=== PATIENT | female | born 1975 | race Caucasian/White ===

== ENCOUNTER 2017-09-18 20:27 | Emergency (ER) | payer OTHER ==
--- NOTE | 2017-09-18 21:29 | PD ---
HPI Chief Complaint Decreased movement Date Seen: Sep 18, 2017 Time Seen: 21:23 Travel History International Travel<30 Days: No Contact w/Intl Traveler<30Days: No Known Affected Area: No History of Present Illness HPI 41-year-old white female sees Dr. Coleman for care now 39 weeks presents with decreased movement. He has no other complaints or problems no pain, bleeding, leakage of fluid. heart rate tracing is reactive and here on OB ED and she is chrissy every 4-5 minutes but does not feel them Weeks Gestation: 39 Para: 0 : 1 History Social History Alcohol Use: No Tobacco Use: No Substance Abuse: No Review of Systems General / Constitutional: No: Fever, Weight Gain, Chills, Other Eyes: No: Diploplia, Blurred Vision, Visual changes, Pain, Photophobia HENT: No: Headaches, Vertigo, Lightheadedness Cardiovascular: No: Irregular Rhythm, Chest Pain or Discomfort, Palpitations, Tachycardia, Syncope, Varicosities, Edema, Cyanosis Respiratory: No: Cough, Short of Breath, Other Gastrointestinal: No: Nausea, Vomiting, Diarrhea Genitourinary: No: Decreased Urinary Output, Oliguria Musculoskeletal: No: Limited ROM, Weakness, Cramping, Edema, Pain Skin: No Rash, No Itching, No Dryness, No Lumps, No Change in Pigmentation, No Change in Nails, No Alopecia, No Lesions Neurologic: No: Weakness, Dizziness, Syncope, Focal Abnormalities, Coordination Problem, Headache, Slurred Speech, Seizures Psychiatric: No: Depression, Suicidal Ideations, Homicidal Ideation Endocrine: No: Heat Intolerance, Cold Intolerance, Polydipsia, Polyuria, Other Physical Exam Narrative GENERAL: Well-nourished, well-developed patient. SKIN: Warm and dry. HEAD: Normocephalic and atraumatic. EYES: No scleral icterus. No injection or drainage. ENT: No nasal drainage noted. Mucous membranes pink. Airway patent. NECK: Supple, trachea midline. No JVD. CARDIOVASCULAR: Regular rate and rhythm without murmurs, gallops, or rubs. RESPIRATORY: Breath sounds equal bilaterally. No accessory muscle use. BREASTS: Bilateral exam showed no masses , no retractions, no nipple discharge. ABDOMEN/GI: Abdomen soft, non-tender, bowel sounds present, no rebound, no guarding Gravid to [39-] weeks size Fundal Height: [39-] GENITOURINARY: External Genitalia: intact and normal in appearance BUS glands: [-] Cervix: [post-] Dilatation: [-closed] Effacement: [50-] Station: [-2] Presentation: [-vtx] Membranes: [intact ] Uterine Contractions: [-q 4 min] FHT's: Category: [1-] Baseline: [133-] Reactive: [R-] Variability: [mod-] Decels: [0-] EXTREMITIES: No cyanosis or edema. BACK: Nontender without obvious deformity. No CVA tenderness. NEUROLOGICAL: Awake and alert. Motor and sensory grossly within normal limits. Five out of 5 muscle strength in all muscle groups. Normal speech. MDM Interpretation(s) Patient is 41-year-old white female at 39 weeks here for decreased movement, baby is a reactive heart rate tracing here with good revealing large accelerations. She is feeling more movement since she has been here on OB ED. She has no other complaints or problems. Plan Plan to discharge home with home kick counts and she is to follow-up Dr. Coleman Diagnosis Diagnosis: Primary Impression: Decreased movement during in third trimester, antepartum Additional Impression: 39 weeks gestation of Disposition: 01 DISCHARGE HOME Condition: Stable Davie Connell II, MD Sep 18, 2017 21:29
== END 2017-09-18 21:43 | disposition home or self-care (01) ==
LOC: HOBED 20:27
DX: O36.8130 Decreased fetal movements, third trimester, not applicable or unspecified (principal); Z3A.39 39 weeks gestation of pregnancy
CPT/HCPCS: 59025

== ENCOUNTER 2017-09-21 12:36 | Inpatient (IN) | payer OTHER ==
[~2017-09-21] VITALS: Ht 167.6 cm; Wt 60.0 kg
[2017-09-21] VITALS (17 sets, daily range): BP systolic 111–154; BP diastolic 72–91; PULSE 70–105; RESP 18; TEMP 98–98.5; O2SAT 97
[2017-09-21] MEDS ORDERED: LACTATED RINGER'S 1000 ML INJ 1,000 ML IV SCH (13:32)
[2017-09-21] MEDS ORDERED: LACTATED RINGER'S 1000 ML INJ 1,000 ML IV PRN (13:32)
--- NOTE | 2017-09-21 13:40 | PD ---
HPI Chief Complaint ctx Date Seen: Sep 21, 2017 Time Seen: 13:35 Travel History International Travel<30 Days: No Contact w/Intl Traveler<30Days: No Known Affected Area: No History of Present Illness HPI 41y/o @ 39.6wks. She has PNC with Dr. Coleman. She presents to triage with c/o ctx which started this morning. They are 2-3m apart and painful. No LOF or VB. +FM. is c/b AMA. Pt was scheduled for IOL yesterday or Saturday. GBS+. Weeks Gestation: 39 Para: 0 : 1 History Past Medical History Narrative Medical anxiety Obstetric History Obstetric History 1. current Past Surgical History Narrative Surgical L wrist/elbow following sporting injuries Family History Family History: Negative Social History Alcohol Use: No Tobacco Use: No Substance Abuse: No Allergies-Medications (Allergen,Severity, Reaction): Coded Allergies: No Known Allergies (Unverified , 09/21/17) Narrative Medication effexor PNVs Review of Systems Except as stated in HPI: all other systems reviewed are Neg Physical Exam Narrative General: well developed, well nourished, uncomfortable with ctx HEENT: normocephalic atraumatic, extraocular movements intact, neck supple Abdomen: soft, gravid, nontender, nondistended Uterus: fundus term Extremities: full range of motion Skin: normal coloration, no rashes, no suspicious skin lesions noted Neurologic: cranial nerves 2-12 grossly intact, normal muscle tone, normal gait Psychiatric: normal mood and affect, appropriate FHTs: 130s, +accels, no decels, moderate variability, reactive [place]: ctx q3-4m, painful Cvx: 1/80/-1 Data Data Vital Signs Reviewed: Yes Orders Orders Vital Signs (Adult) .ON ADMISSION (09/21/17 13:32) ^ Labor Status (09/21/17 13:32) ^ Non Stress Test (09/21/17 13:32) Admit To Inpatient (09/21/17 ) Vital Signs (Adult) .Per protocol (09/21/17 13:32) Heart (09/21/17 13:32) Amnioinfusion (09/21/17 13:32) Urinary Catheter Management .ONCE (09/21/17 13:32) Diet Liquid (09/21/17 Lunch) Lactated Ringer's 1000 Ml Inj (Lr 1000 M (09/21/17 13:32) Lactated Ringer's 1000 Ml Inj (Lr 1000 M (09/21/17 13:32) Sodium Chlorid 0.9% 500 Ml Inj (Ns 500 M (09/21/17 13:45) Sodium Chlor 0.9% 1000 Ml Inj (Ns 1000 M (09/21/17 13:52) Lidocaine 1% Inj (50 Ml) (Xylocaine 1% I (09/21/17 13:45) Fentanyl Inj (Fentanyl Inj) (09/21/17 13:45) Fentanyl Inj (Fentanyl Inj) (09/21/17 13:45) Penicillin G Potassium Inj (Pfizerpen-G (09/21/17 13:45) Penicillin G Potassium Inj (Pfizerpen-G (09/21/17 17:45) Complete Blood Count With Diff (09/21/17 13:32) Hold Clot (09/21/17 13:32) Abo/Rh Blood Type (09/21/17 13:32) Urinalysis - C+S If Indicated (09/21/17 13:32) Drug Screen, Random Urine (09/21/17 13:32) Ob/Psych Drug Screen, Urine (09/21/17 13:32) Resp Oxygen Non Rebreathe Mask (09/21/17 ) ^ Epidural / Intrathecal Infus (09/21/17 13:32) Oxytocin 30 Units-500ml Premix (Pitocin (09/21/17 13:45) Lidocaine 1% Inj (50 Ml) (Xylocaine 1% I (09/21/17 13:45) Light Mineral Oil (Muri-Lube Oil) (09/21/17 13:45) Inpatient Certification (09/21/17 ) Group B Strep: Positive MDM Plan 41y/o G1 @ 39.6wks with painful ctx in latent labor. -- given AMA with plans for IOL on Saturday, will admit -- GBS+, PCN ordered -- FHTs cat 1 Dispo: Dr. Coleman/Nina (email operations manager) notified of pt status and agrees with plan of care. They will assume care of the pt. Courtesy orders placed. Diagnosis Diagnosis: Primary Impression: 39 weeks gestation of Additional Impressions: AMA (advanced maternal age) primigravida 35+ Uterine contractions during GBS (group B Streptococcus carrier), +RV culture, currently Samantha Moore MD Sep 21, 2017 13:40
[2017-09-21] MEDS ORDERED: VENL75TA PO (13:41)
[2017-09-21] MEDS ORDERED: PREN1TAB45 PO (13:41)
[2017-09-21] MEDS ORDERED: PENICILLIN G POTASSIUM INJ 5,000,000 UNITS in SODIUM CHLORIDE 0.9% INJ 100 ML IV ONE (13:45)
[2017-09-21] MEDS ORDERED: MINERAL OIL 10 ML VIAL TOPICAL PRN (13:45)
[2017-09-21] MEDS ORDERED: OXYTOCIN 30 UNITS-500ML PREMIX 500 ML IV ONE ×2 (13:45→20:15)
[2017-09-21] MEDS ORDERED: LIDOCAINE HCL 1% 50 ML VIAL I-DERMAL PRN (13:45)
[2017-09-21] MEDS ORDERED: SODIUM CHLORID 0.9% 500 ML INJ 500 ML IV PRN (13:45)
[2017-09-21] MEDS ORDERED: LIDOCAINE HCL 1% 50 ML VIAL INFIL PRN (13:45)
[2017-09-21] MEDS ORDERED: SODIUM CHLOR 0.9% 1000 ML INJ 1,000 ML IV PRN (13:52)
[2017-09-21 14:35] LABS: AUTOMATED NEUTROPHIL # 10.7 TH/MM3 (1.8-7.7); BASOPHIL # 0.1 TH/MM3 (0-0.2); BASOPHIL % 0.5 % (0.0-2.0); EOSINOPHIL % 0.1 % (0.0-4.0); HEMOGLOBIN 10.5 GM/DL (11.6-15.3); LYMPH % 8.5 % (9.0-44.0); LYMPHOCYTE # 1.1 TH/MM3 (1.0-4.8); MEAN CELL VOLUME 76.4 FL (80.0-100.0); MEAN CORPUSCULAR HEMOGLOBIN 24.2 PG (27.0-34.0); MEAN CORPUSCULAR HGB CONC 31.7 % (32.0-36.0); MEAN PLATELET VOLUME 10.2 FL (7.0-11.0); MONO % 8.4 % (0.0-8.0); MONOCYTE # 1.1 TH/MM3 (0-0.9); NEUT % 82.5 % (16.0-70.0); PLATELET COUNT 193 TH/MM3 (150-450); RED BLOOD COUNT 4.32 MIL/MM3 (4.00-5.30); RED CELL DISTRIBUTION WIDTH 17.7 % (11.6-17.2); WHITE BLOOD COUNT 12.9 TH/MM3 (4.0-11.0)
[2017-09-21] MEDS ORDERED: DIPHTH/TETANUS/ACEL PERTUSSIS (BOOSTER) 0.5 ML VIAL/PFS IM ONE (16:00)
[2017-09-21] MEDS ORDERED: MEASLES, MUMPS, RUBELLA VACCINE 0.5 ML VIAL SQ ONE (16:00)
[2017-09-21 16:23] LABS: BACTERIA, URINE RARE /hpf; BILIRUBIN, URINE NEG (NEG); BLOOD, URINE SMALL (NEG); GLUCOSE,URINE NEG (NEG); KETONE, URINE 80 mg/dL (NEG); MUCUS URINE FEW /lpf (OCC); NITRITE,URINE NEG (NEG); SQUAMOUS EPITHELIAL CELL URINE 5 /hpf (0-5); URINE COLOR YELLOW (YELLW/STRAW); URINE LEUKOCYTE ESTERASE NEG (NEG)
[2017-09-21] MEDS ORDERED: PENICILLIN G POTASSIUM INJ 2,500,000 UNITS in SODIUM CHLORIDE 0.9% INJ 100 ML IV SCH (18:00)
[2017-09-21] MEDS ORDERED: LIDOCAINE HCL 1% PF 30 ML VIAL ONE (19:30)
--- NOTE | 2017-09-21 20:05 | PD.OB.DELI ---
Weeks gestation: 39 Gest age assessed date: Sep 21, 2017 Pt started active labor?: Yes Active labor start date: Sep 21, 2017 Medical induction of labor?: No Artificial rupture of membrane: No Anesthesia: None Episiotomy: None Vaginal Delivery: Normal Presentation: Occiput anterior Nuchal Cord: None Delayed cord clamping (45 sec): No Delivery date: Sep 21, 2017 Delivery time: 19:33 One Minute : 3 Five Minute : 6 Ten Minute : 8 Placenta: Spontaneous delivery, Intact, 3 vessel cord Laceration: No lacerations Estimated blood loss: 300 Additional Information Beautiful delivery of Chandra... Cord cut quickly due to the baby being floppy [employer] called as baby was not responding well. By 10 minutes baby looked much better. Pt did extremely well and had no meds at all FOC is Leonard Prado son. Jazmin Wood MD Sep 21, 2017 20:05
[2017-09-21] MEDS ORDERED: ONDANSETRON ODT 4 MG TAB PO PRN (20:15)
[2017-09-21] MEDS ORDERED: ZOLPIDEM TARTRATE 5 MG TAB PO PRN (20:15)
[2017-09-21] MEDS ORDERED: SODIUM CHLORIDE 0.9% FLUSH 10 ML FLUSH IV FLUSH PRN (20:15)
[2017-09-21] MEDS ORDERED: DOCUSATE SODIUM 50 MG/SENNA 8.6 MG TAB PO PRN (20:15)
[2017-09-21] MEDS ORDERED: WITCH HAZEL 50%/GLYCERIN 12.5% 40 PAD JAR TOPICAL PRN (20:15)
[2017-09-21] MEDS ORDERED: BENZOCAINE 20% TOPICAL SPRAY 60 ML CAN TOPICAL PRN (20:15)
[2017-09-21] MEDS ORDERED: OXYTOCIN 30 UNITS-500ML PREMIX 500 ML IV SCH (20:15)
[2017-09-21] MEDS ORDERED: ALUMINUM/MAGNESIUM/SIMETH 30 ML CUP PO PRN (20:15)
[2017-09-21] MEDS: IBUPROFEN 800 MG TAB PO PRN (20:50)
[2017-09-21] MEDS: ACETAMINOPHEN 325 MG TAB PO PRN (20:50)
[2017-09-22] MEDS: PRENATAL VITAMIN CHEWABLE TAB PO SCH (08:22)
[2017-09-22] MEDS: IBUPROFEN 800 MG TAB PO PRN ×2 (08:22→17:37)
[2017-09-22] MEDS: ACETAMINOPHEN 325 MG TAB PO PRN ×2 (08:22→17:37)
[2017-09-22 08:30] VITALS: BP 126/86; PULSE 72; RESP 17; TEMP 98.1
[2017-09-22] MEDS: SODIUM CHLORIDE 0.9% FLUSH 10 ML FLUSH IV FLUSH SCH (09:00)
[2017-09-22] MEDS: VENLAFAXINE HCL 75 MG TAB PO SCH (09:26)
--- NOTE | 2017-09-22 12:07 | HHI.OB ---
Subjective Post Day: 1 Remarks Doing well, Pain well controlled baby is good Bleeding is normal Objective Vitals/I&O Vital Signs Date Time Temp Pulse Resp B/P (MAP) Pulse Ox O2 Delivery O2 Flow Rate FiO2 09/22/17 08:30 98.1 09/22/17 08:30 72 17 09/22/17 08:30 126/86 (99) 09/21/17 22:15 98.0 73 18 111/78 (89) 97 09/21/17 20:46 73 09/21/17 20:45 18 09/21/17 20:45 73 128/83 (98) 09/21/17 20:45 98.5 09/21/17 20:29 70 18 127/76 (93) 09/21/17 20:05 78 129/73 (91) 09/21/17 20:00 76 18 09/21/17 20:00 126/75 (92) 09/21/17 19:50 98.2 09/21/17 19:49 18 09/21/17 19:48 111/89 (96) 09/21/17 19:48 105 09/21/17 18:10 98.3 78 18 125/72 (89) 09/21/17 16:45 18 09/21/17 16:38 74 141/80 (100) 09/21/17 15:45 98.0 09/21/17 15:45 18 09/21/17 13:45 18 09/21/17 13:39 70 154/83 (106) 09/21/17 12:54 77 130/88 (102) 09/21/17 12:51 131/91 (104) Objective Remarks GENERAL: Well-nourished, well-developed patient. CARDIOVASCULAR: Regular rate and rhythm without murmurs, gallops, or rubs. RESPIRATORY: Breath sounds equal bilaterally. No accessory muscle use. ABDOMEN/GI: Abdomen soft, non-tender. Fundus: Firm, non-tender at umbilicus. GENITOURINARY: Light to moderate bleeding. EXTREMITIES: No cyanosis or edema, non-tender, without signs of DVT. Medications and IVs Current Medications Medications (Trade) Dose Ordered Sig/Yakelin Route Start Time Stop Time Status Last Admin (NS Flush) 2 ml BID IV FLUSH 09/21/17 21:00 (NS Flush) 2 ml UNSCH PRN IV FLUSH 09/21/17 20:15 (Tylenol) 650 mg Q4H PRN PO 09/21/17 20:15 09/22/17 08:22 (Motrin) 800 mg Q8H PRN PO 09/21/17 20:15 09/22/17 08:22 (Americaine 20% Top Spr) 1 spray Q4H PRN TOPICAL 09/21/17 20:15 09/22/17 08:23 (Tucks Pads) 1 applic QID PRN TOPICAL 09/21/17 20:15 09/22/17 08:22 (Megan-Colace) 2 tab Q12H PRN PO 09/21/17 20:15 09/21/17 20:50 (Ambien) 5 mg HS PRN PO 09/21/17 20:15 (Mag-Al Plus Susp Liq) 15 ml Q8H PRN PO 09/21/17 20:15 (Zofran Odt) 4 mg Q6H PRN PO 09/21/17 20:15 Non-Formulary Medication 1 tab DAILY PO 09/22/17 09:00 UNV (Effexor) 75 mg DAILY PO 09/22/17 09:00 09/22/17 09:26 Assessment/Plan Assessment and Plan PPD #1 Doing well Routine halfway tomorrow Jazmin Wood MD Sep 22, 2017 12:07
[2017-09-22] MEDS ORDERED: IBUP1TAB7 PO (12:09)
--- NOTE | 2017-09-22 12:10 | HHI.DCPOC ---
Discharge Care Plan Diagnosis: (1) Vaginal delivery (2) AMA (advanced maternal age) primigravida 35+ (3) 39 weeks gestation of Report Symptoms to Your Doctor -Temperature above 100.5 degrees -Redness, of incision or excessive or foul smelling drainage -Unusual pain or calf pain -Increased vaginal bleeding -Painful or difficulty urinating -Feelings of extreme sadness or anxiety after 2 weeks Goals to Promote Your Health * To prevent worsening of your condition and complications * To maintain your health at the optimal level Directions to Meet Your Goals Take your medications as prescribed Follow your dietary instruction Follow activity as directed Ensure plenty of rest for recovery Drink fluids for hydration Keep your appointments as scheduled Take your immunizations and boosters as scheduled If your symptoms worsen call your PCP, if no PCP go to Urgent Care Center or Emergency Room Smoking is Dangerous to Your Health. Avoid second hand smoke Call the 24-hour crisis hotline for domestic abuse at Jazmin Wood MD Sep 22, 2017 12:10
[2017-09-22 19:45] VITALS: BP 129/83; PULSE 73; RESP 18; TEMP 98.6
[2017-09-23] MEDS: ACETAMINOPHEN 325 MG TAB PO PRN (07:09)
[2017-09-23] MEDS: IBUPROFEN 800 MG TAB PO PRN (07:10)
[2017-09-23 08:00] VITALS: BP 143/86; PULSE 74; RESP 18; TEMP 97.7; O2SAT 100
--- NOTE | 2017-09-23 08:06 | HHI.OB ---
Subjective Post Day: 2 Remarks doing well, Objective Vitals/I&O Vital Signs Date Time Temp Pulse Resp B/P (MAP) Pulse Ox O2 Delivery O2 Flow Rate FiO2 09/22/17 19:45 129/83 (98) 09/22/17 19:45 98.6 73 18 09/22/17 08:30 98.1 09/22/17 08:30 72 17 09/22/17 08:30 126/86 (99) Objective Remarks GENERAL: Well-nourished, well-developed patient. CARDIOVASCULAR: Regular rate and rhythm without murmurs, gallops, or rubs. RESPIRATORY: Breath sounds equal bilaterally. No accessory muscle use. ABDOMEN/GI: Abdomen soft, non-tender. Fundus: Firm, non-tender at umbilicus. GENITOURINARY: Light to moderate bleeding. EXTREMITIES: No cyanosis or edema, non-tender, without signs of DVT. Medications and IVs Current Medications Medications (Trade) Dose Ordered Sig/Yakelin Route Start Time Stop Time Status Last Admin (NS Flush) 2 ml BID IV FLUSH 09/21/17 21:00 (NS Flush) 2 ml UNSCH PRN IV FLUSH 09/21/17 20:15 (Tylenol) 650 mg Q4H PRN PO 09/21/17 20:15 09/23/17 07:09 (Motrin) 800 mg Q8H PRN PO 09/21/17 20:15 09/23/17 07:10 (Americaine 20% Top Spr) 1 spray Q4H PRN TOPICAL 09/21/17 20:15 09/22/17 08:23 (Tucks Pads) 1 applic QID PRN TOPICAL 09/21/17 20:15 09/22/17 08:22 (Megan-Colace) 2 tab Q12H PRN PO 09/21/17 20:15 09/21/17 20:50 (Ambien) 5 mg HS PRN PO 09/21/17 20:15 (Mag-Al Plus Susp Liq) 15 ml Q8H PRN PO 09/21/17 20:15 (Zofran Odt) 4 mg Q6H PRN PO 09/21/17 20:15 Non-Formulary Medication 1 tab DAILY PO 09/22/17 09:00 UNV (Effexor) 75 mg DAILY PO 09/22/17 09:00 09/22/17 09:26 Assessment/Plan Problem List: (1) Vaginal delivery ICD Codes: O80 - Encounter for full-term uncomplicated delivery Assessment and Plan PPD #2 Doing well Routine longterm today Discharge Planning routine Attending Attestation pt seen by Deepti Brasher MD Sep 23, 2017 08:06
[2017-09-23] MEDS: SODIUM CHLORIDE 0.9% FLUSH 10 ML FLUSH IV FLUSH SCH (08:52)
[2017-09-23] MEDS: PRENATAL VITAMIN CHEWABLE TAB PO SCH (08:54)
[2017-09-23] MEDS: VENLAFAXINE HCL 75 MG TAB PO SCH (08:54)
== END 2017-09-23 14:24 | disposition home or self-care (01) | DRG 775 ==
LOC: HOBED 12:36 → H2EA 13:36 → H1EA 22:15
PROVIDERS: ADMIT Obstetrics & Gynecology; ATTEND Obstetrics & Gynecology
PROC: 10E0XZZ Delivery of Products of Conception, External Approach (ICD-10-PCS; principal; 2017-09-21)
DX: O99.824 Streptococcus B carrier state complicating childbirth (principal); O36.8130 Decreased fetal movements, third trimester, not applicable or unspecified; Z23 Encounter for immunization; Z37.0 Single live birth; Z3A.39 39 weeks gestation of pregnancy
CPT/HCPCS: 59025; 80307; 81001; 85025; 86900; 86901; 99285; J2540; J7120